=== PATIENT | male | born 1970 | race Hispanic/Latino ===

== ENCOUNTER → 2024-02-24 10:34 | Outpatient (REF) | payer BC, SELFPAY | LOC: RAD 10:34 | PROVIDERS: ATTENDING PHYSICIAN Family Medicine | DX: M25.551 Pain in right hip (principal); M79.604 Pain in right leg | CPT/HCPCS: 72110; 73523 ==

== ENCOUNTER → 2024-11-12 11:26 | Outpatient (REF) | payer BC, SELFPAY | LOC: DHSLP 11:26 | PROVIDERS: ATTENDING PHYSICIAN Internal Medicine; FAMILY PHYSICIAN Internal Medicine Geriatric Medicine | DX: G47.33 Obstructive sleep apnea (adult) (pediatric) (principal) | CPT/HCPCS: 95800 ==